=== PATIENT | female | born 1975 | race Caucasian/White ===

== ENCOUNTER 2021-10-17 13:24 | Inpatient (IN) | payer MEDICAID ==
[~2021-10-17] VITALS: Ht 167.6 cm; Wt 72.7 kg
[2021-10-17 15:06] LABS: BASOPHILS % 0.6 % (0.0-2.0); CHLORIDE 111 mEq/L (98-107); EOSINOPHILS % 1.6 % (0.0-5.0); HEMATOCRIT. 38.5 % (36.0-48.0); MEAN CORPUSCULAR HEMOGLOBIN 31.6 pg (28.0-32.0); MEAN CORPUSCULAR VOLUME 93.4 fL (81.0-99.0); MEAN PLATELET VOLUME 8.1 fl (7.4-10.4); MONOCYTES % 9.3 % (2.0-8.0); NEUTROPHILS % 35.5 % (40.0-76.0); PLATELET 170 x1000/uL (130-400); RED BLOOD CELL COUNT 4.12 mill/uL (4.2-5.4); RED CELL DISTRIBUTION WIDTH 12.8 % (11.6-14.6)
[2021-10-17] MEDS ORDERED: MORPHINE SULFATE 4 MG/ML CPJ (NOT FOR IM USE) IV ONE (15:15)
[2021-10-17] MEDS ORDERED: KETOROLAC 30MG/ML VIAL IV ONE (17:15)
[2021-10-17] MEDS ORDERED: ONDANSETRON HCL 4MG/2ML INJ IV ONE (17:15)
[2021-10-17 18:02] LABS: CLARITY URINE CLEAR (CLEAR); COLOR URINE YELLOW (YELLOW); KETONES URINE NEGATIVE (NEGATIVE); LEUKOCYTE ESTERASE URINE 3+ (NEGATIVE); NITRITE URINE NEGATIVE (NEGATIVE); OCCULT BLOOD URINE NEGATIVE (NEGATIVE); PH URINE 7.5 (4.5-8.0); PROTEIN URINE NEGATIVE (NEGATIVE); SPECIFIC GRAVITY URINE 1.006 (1.005-1.030); UROBILINOGEN URINE 0.2 E.U./dL (0.2-1.0)
[2021-10-17] MEDS ORDERED: CEFTRIAXONE 1 G PREMIX 50 ML IV ONE (18:45)
[2021-10-17] MEDS ORDERED: SODIUM CHLORIDE 0.9% 1000ML BAG (SEPSIS BOLUS) IV ONE (19:00)
[2021-10-18] MEDS ORDERED: KETOROLAC 30MG/ML VIAL IV NR (01:00)
[2021-10-18 09:30] VITALS: BP 94/61
[2021-10-18] MEDS ORDERED: SODIUM CHLORIDE 0.9% 1,000 ML IV SCH (12:00)
[2021-10-18] MEDS ORDERED: CLONIDINE 0.1MG TABLET PO PRN (12:00)
[2021-10-18] MEDS ORDERED: IPRATROPIUM/ALBUTEROL 0.5-3(2.5)MG/3ML NEB HHN PRN (12:00)
[2021-10-18] MEDS ORDERED: ACETAMINOPHEN 325MG TABLET PO PRN ×2 (12:00)
[2021-10-18] MEDS ORDERED: ONDANSETRON HCL 4MG/2ML INJ IV PRN (12:00)
[2021-10-18] MEDS ORDERED: HYDROCODONE/ACETAMINOPHEN 5/325MG TABLET PO PRN (12:00)
[2021-10-18] MEDS ORDERED: LORAZEPAM 0.5MG TABLET PO PRN (12:00)
[2021-10-18] MEDS ORDERED: DOCUSATE SODIUM 100MG CAPSULE PO PRN (12:00)
[2021-10-18] MEDS ORDERED: AMOX-494 MT (12:36)
[2021-10-18] MEDS ORDERED: NALOXONE HCL 0.4MG/ML VIAL IV PRN (12:45)
== END 2021-10-18 12:28 | disposition left against medical advice (07) | DRG 463 ==
LOC: ER 13:42 → MICUSO 10-18 02:43
PROVIDERS: ADMIT Internal Medicine; ATTEND Internal Medicine
DX: N39.0 Urinary tract infection, site not specified (principal); G90.8 Other disorders of autonomic nervous system; B95.1 Streptococcus, group B, as the cause of diseases classified elsewhere; D72.820 Lymphocytosis (symptomatic); D72.821 Monocytosis (symptomatic); I10 Essential (primary) hypertension; Z20.822 Contact with and (suspected) exposure to COVID-19; N32.89 Other specified disorders of bladder; Z53.29 Procedure and treatment not carried out because of patient's decision for other reasons; Z85.3 Personal history of malignant neoplasm of breast; Z90.49 Acquired absence of other specified parts of digestive tract; Z92.21 Personal history of antineoplastic chemotherapy; Z92.3 Personal history of irradiation
CPT/HCPCS: 36415; 71045; 74177; 80053; 81003; 83605; 83880; 84145; 84484; 85025; 87077; 93005; 99291; C9803; J0696; J1885; J2270; J7030; U0003; U0005